=== PATIENT | female | born 1940 | race African-American/Black ===

== ENCOUNTER 2018-09-09 10:27 | Inpatient (IN) | payer OTHER ==
[~2018-09-09] VITALS: Ht 167.6 cm; Wt 45.3 kg
--- NOTE | ~2018-09-09 | EKG ---
[place] [address] [facility] [place] [address] ELECTROCARDIOGRAM REPORT Name: RYANRACHEL T Room #: 429-P [facility] M.R.#: [id number] Admission: 09/09/18 Attend Phys: Devan Jiang MD Discharge: Date of : 36 Report #: [id number] THIS REPORT FOR: //name// [facility] ED Test Date: 2018-09-09 Test Time: 10:52:05 Pat Name: RACHEL DAVIS Department: Room: 429 Gender: F Primary Therapist: bob : [id number] Requested By: Marta Adames Order Number: [id number] MD: Anibal Ravi Measurements Intervals [place] Rate: 59 P: 35 GA: 151 QRS: 12 QRSD: 84 T: 12 QT: 410 QTc: 407 Interpretive Statements Sinus rhythm Left atrial enlargement Left ventricular hypertrophy Compared to ECG 01/01/2014 18:22:25 Atrial abnormality now present Ventricular premature complex(es) no longer present Electronically Signed On 09-09-2018 14:08:16 CDT by Anibal Ravi [email or web address] <ELECTRONICALLY SIGNED> By: Anibal Ravi MD 09/09/18 1408 [id number] [id number] Anibal Ravi MD /EPI
[~2018-09-09 10:27] MED LIST: ACID CONTROL20 MG PO; ATORVASTATIN CA40 MG PO; BENADRYL25 MG; BRIMONIDINE TAR1 BO1; CERTAVITE WITH1 EAC1 PO; DEPAKOTE ER500 MG PO; HALDOL5 MG/1 ML IM; HALOPERIDOL 5 MG5 MG PO; HI-CAL500 MG PO; HYDRALAZINE20 MG/M1 IV PUSH; LOPERAMIDE 2 MG2 M1 PO; LORAZEPAM 0.50.5 M1 PO; LORAZEPAM 22 MG/1 ML IM; LORAZEPAM 22 MG/1 ML IV PUSH; LORAZEPAM 2MG TA2 M1 PO; NAMENDA 5 MG TAB5 M1 PO; NORVASC 5 MG TAB5 MG PO; POTASSIUM20 PO; PRINIVIL10 MG PO; REMERON15 MG; RISPERDAL 1 MG T1 MG PO; TIMOLOL GL0.5 %/5 M1; TRAVATAN Z2.5 ML; TUMS PO
[2018-09-09 10:31] VITALS: BP 185/68
[2018-09-09 11:23] LABS: URINE BILIRUBIN NEGATIVE (Negative); URINE BLOOD 2+ (Negative); URINE CLARITY CLEAR; URINE COLOR YELLOW; URINE GLUCOSE-RANDOM* NEGATIVE (Negative); URINE KETONES NEGATIVE (Negative); URINE PROTEIN (DIPSTICK) NEGATIVE (Negative); URINE SPECIFIC GRAVITY 1.025 (1.005-1.035); URINE UROBILINOGEN 0.2 E.U./dl (0.2-1.0)
[2018-09-09 11:24] LABS: URINE LEUKOCYTES-REFLEX 1+ (Negative); URINE NITRITE-REFLEX POSITIVE (Negative)
[2018-09-09] MEDS ORDERED: CLONIDINE HCL0.1 M1 PO (11:30)
[2018-09-09 11:34] LABS: CASTS None Seen /LPF (None Seen); CRYSTALS None Seen /LPF (None Seen); SQUAMOUS >10 Many /LPF (0-3)
[2018-09-09] MEDS ORDERED: ATROPINE SULFATE2 ML SUBLING (11:34)
[2018-09-09 11:35] LABS: BACTERIA-REFLEX >30 Many /HPF (None Seen); URINE RBC 3-10 Few /HPF (0-2); URINE WBC-REFLEX 6-15 Few /HPF (0-5)
[2018-09-09 11:36] LABS: ABSOLUTE NEUTROPHILS 3.8 thou/uL (1.4-8.2); BASOPHILS 0.9 % (0.0-2.0); EOSINOPHILS 1.3 % (0.0-3.0); HEMATOCRIT 36.4 % (37.0-47.0); HEMOGLOBIN 12.1 gm/dL (12.0-15.0); LYMPHOCYTES 21.7 % (24.0-44.0); MCHC 33.3 g/dL (28.0-37.0); MCV 90.3 fL (80.0-100.0); MONOCYTES 7.8 % (1.0-8.0); PLATELET COUNT 180 thou/uL (150-400); POLYS 68.3 % (36.0-66.0); RBC 4.04 mil/uL (4.20-5.00); WBC 5.5 thou/uL (4.0-11.0)
[2018-09-09] MEDS ORDERED: AMOXICILLIN 50500 MG PO (11:36)
[2018-09-09] MEDS ORDERED: CHLORHEXIDINE (11:41)
[2018-09-09 11:44] LABS: ANION GAP 7 mmol/L (7-16); BUN 20 mg/dL (7-18); CALCIUM 9.6 mg/dL (8.5-10.1); CHLORIDE 105 mmol/L (98-107); CO2 26 mmol/L (21-32); CREATININE 0.8 mg/dL (0.6-1.0); GLUCOSE 95 mg/dL (74-106); SODIUM 138 mmol/L (136-145)
[2018-09-09 11:53] LABS: ALBUMIN 2.9 g/dL (3.4-5.0); SGOT 21 U/L (15-37); SGPT 18 U/L (30-65); TOTAL BILIRUBIN 0.3 mg/dL (<0.1-1.0); TOTAL PROTEIN 7.7 g/dL (6.4-8.2); TROPONIN-I <0.06 ng/mL (<0.06)
[2018-09-09 12:27] VITALS: BP 186/58
[2018-09-09 13:09] VITALS: BP 159/89
[2018-09-09 18:19] VITALS: BP 187/121
[2018-09-09 20:23] VITALS: BP 157/57
[2018-09-10 05:48] LABS: HEMATOCRIT 33.2 % (37.0-47.0); HEMOGLOBIN 11.1 gm/dL (12.0-15.0); MCH 29.9 pg (26.0-34.0); MCHC 33.3 g/dL (28.0-37.0); MCV 89.9 fL (80.0-100.0); RBC 3.7 mil/uL (4.20-5.00); RDW 14.7 % (10.5-14.5); WBC 4.4 thou/uL (4.0-11.0)
[2018-09-10 06:06] LABS: CALCIUM 8.5 mg/dL (8.5-10.1); CREATININE 0.6 mg/dL (0.6-1.0); POTASSIUM 4.2 mmol/L (3.5-5.1)
[2018-09-10 08:01] VITALS: BP 175/79
[2018-09-10 12:50] VITALS: BP 182/74
[2018-09-10 16:00] VITALS: BP 119/45
[2018-09-10 19:33] VITALS: BP 123/56
[2018-09-11 04:20] VITALS: BP 188/82
[2018-09-11 07:29] VITALS: BP 154/80
[2018-09-11 15:07] VITALS: BP 140/82
[2018-09-11 19:45] VITALS: BP 181/74
[2018-09-12 04:29] VITALS: BP 177/84
[2018-09-12 07:30] VITALS: BP 196/89
[2018-09-12 08:11] VITALS: BP 172/70
[2018-09-12 09:35] VITALS: BP 145/53
[2018-09-12 16:38] VITALS: BP 155/61
[2018-09-12 20:03] VITALS: BP 180/85
[2018-09-13 04:35] VITALS: BP 195/92
[2018-09-13 07:45] VITALS: BP 199/98
[2018-09-13 17:12] VITALS: BP 144/59
[2018-09-13 19:45] VITALS: BP 122/63
[2018-09-14 04:13] VITALS: BP 189/74
[2018-09-14 05:30] VITALS: BP 152/80
[2018-09-14 09:28] VITALS: BP 129/70
[2018-09-14] MEDS ORDERED: HYDRALAZINE 5050 MG PO (12:10)
[2018-09-14] MEDS ORDERED: BACTRIM DS TAB1 EACH PO (12:18)
[2018-09-14 16:23] VITALS: BP 131/47
== END 2018-09-14 17:36 | DRG 689 ==
LOC: ER 10:27 → 4E 12:11 → EROBS 12:11 → 4E 12:46
PROVIDERS: Hospitalist; Physician Assistant
DX: N39.0 Urinary tract infection, site not specified (principal); G92 Toxic encephalopathy; I42.9 Cardiomyopathy, unspecified; Z68.1 Body mass index [BMI] 19.9 or less, adult; E44.0 Moderate protein-calorie malnutrition; I10 Essential (primary) hypertension; E11.9 Type 2 diabetes mellitus without complications; M19.90 Unspecified osteoarthritis, unspecified site; M81.0 Age-related osteoporosis without current pathological fracture; E78.5 Hyperlipidemia, unspecified; F01.50 Vascular dementia, unspecified severity, without behavioral disturbance, psychotic disturbance, mood disturbance, and anxiety; B96.20 Unspecified Escherichia coli [E. coli] as the cause of diseases classified elsewhere; H40.9 Unspecified glaucoma; F32.9 Major depressive disorder, single episode, unspecified; Z86.73 Personal history of transient ischemic attack (TIA), and cerebral infarction without residual deficits; Z79.899 Other long term (current) drug therapy; Z23 Encounter for immunization
CPT/HCPCS: 10183; 10783